=== PATIENT | male | born 1975 | race Caucasian/White ===

== ENCOUNTER 2016-08-11 11:37 | Emergency (ER) | payer SELFPAY ==
[~2016-08-11] VITALS: Ht 167.6 cm; Wt 58.0 kg
[2016-08-11 11:39] VITALS: BP 128/82; PULSE 73; RESP 15; TEMP 98.3; O2SAT 98
[2016-08-11] MEDS ORDERED: SODIUM CHLOR 0.9% 1000 ML INJ 1,000 ML IV ONE (11:58)
[2016-08-11] MEDS ORDERED: ONDANSETRON HCL 4 MG/2 ML VIAL IVP ONE (12:00)
[2016-08-11] MEDS ORDERED: SODIUM CHLORIDE 0.9% FLUSH 10 ML FLUSH IVF PRN (12:00)
--- NOTE | 2016-08-11 12:04 | PD ---
HPI Chief Complaint: Dizziness Time Seen by Provider: 12:00 Travel History International Travel<30 days: No Contact w/Intl Traveler<30days: No Traveled to known affect area: No History of Present Illness HPI 41 year old male presents to the emergency department for evaluation of vomiting and dizziness that started last night around 9pm. Patient reports continuous vomiting with associated nausea. He reports associated fatigue. He denies any fevers, headache, chest pain, SOB, abdominal pain, diarrhea, constipation. He reports PMH of HIV. He states his infectious disease MD is Dr. Reid. He states he has had to change his antiviral medications often due to stomach problems and vomiting. He states last time he had a medication change was 2 weeks ago. He believes current symptoms are due to antivirals. He is unsure of his CD4 count or viral load, but states he is compliant with his antivirals. Patient is tunisian speaking and he requests translation be done through his sister at bedside. Official business architect was offered, but declined. [facility] Social History Alcohol Use: No Tobacco Use: Yes Substance Use: No Allergies-Medications (Allergen,Severity, Reaction): Coded Allergies: No Known Allergies (Unverified , 08/11/16) Reported Meds & Prescriptions Reported Meds & Active Scripts Active Reported Descovy (Emtricitabine-Tenofovir Alafenamide) 200-25 mg Tab 1 Tab PO DAILY Prezcobix (Darunavir-Cobicistat) 800-150 Mg Tab 1 Tab PO DAILY Review of Systems Except as stated in HPI: all other systems reviewed are Neg Physical Exam Narrative GENERAL: Well-nourished, well-developed male patient, ambulatory and in no acute distress. Afebrile. SKIN: Focused skin assessment warm/dry. HEAD: Normocephalic. Atraumatic. EYES: No scleral icterus. No injection or drainage. NECK: Supple, trachea midline. No JVD or lymphadenopathy. CARDIOVASCULAR: Regular rate and rhythm without murmurs, gallops, or rubs. RESPIRATORY: Breath sounds equal bilaterally. No accessory muscle use. Lung sounds are clear to auscultation throughout. GASTROINTESTINAL: Abdomen soft, non-tender, nondistended. MUSCULOSKELETAL: No cyanosis, or edema. BACK: Nontender without obvious deformity. No CVA tenderness. NEUROLOGICAL: Awake and alert. Cranial nerves II through XII intact. Motor and sensory grossly within normal limits. Five out of 5 muscle strength in all muscle groups. Normal speech. Data Data Last Documented VS Vital Signs Date Time Temp Pulse Resp B/P Pulse Ox O2 Delivery O2 Flow Rate FiO2 08/11/16 13:27 56 129/85 60 133/91 60 127/87 08/11/16 11:39 98.3 15 98 Orders Electrocardiogram (08/11/16 11:58) Complete Blood Count With Diff (08/11/16 11:58) Comprehensive Metabolic Panel (08/11/16 11:58) Magnesium (Mg) (08/11/16 11:58) Ckmb (Isoenzyme) Profile (08/11/16 11:58) Troponin I (08/11/16 11:58) Ecg Monitoring (08/11/16 11:58) Iv Access Insert/Monitor (08/11/16 11:58) Oximetry (08/11/16 11:58) Ondansetron Inj (Zofran Inj) (08/11/16 12:00) Sodium Chloride 0.9% Flush (Ns Flush) (08/11/16 12:00) Sodium Chlor 0.9% 1000 Ml Inj (Ns 1000 M (08/11/16 11:58) Orthostatic Vital Signs (08/11/16 12:04) CKMB (08/11/16 12:08) CKMB% (08/11/16 12:08) Labs Laboratory Tests Test 08/11/16 12:08 White Blood Count 6.0 TH/MM3 Red Blood Count 5.52 MIL/MM3 Hemoglobin 16.4 GM/DL Hematocrit 47.9 % Mean Corpuscular Volume 86.7 FL Mean Corpuscular Hemoglobin 29.8 PG Mean Corpuscular Hemoglobin 34.3 % Concent Red Cell Distribution Width 13.6 % Platelet Count 218 TH/MM3 Mean Platelet Volume 7.5 FL Neutrophils (%) (Auto) 66.5 % Lymphocytes (%) (Auto) 23.5 % Monocytes (%) (Auto) 7.9 % Eosinophils (%) (Auto) 1.5 % Basophils (%) (Auto) 0.6 % Neutrophils # (Auto) 4.0 TH/MM3 Lymphocytes # (Auto) 1.4 TH/MM3 Monocytes # (Auto) 0.5 TH/MM3 Eosinophils # (Auto) 0.1 TH/MM3 Basophils # (Auto) 0.0 TH/MM3 CBC Comment DIFF FINAL Differential Comment Sodium Level 138 MEQ/L Potassium Level 4.1 MEQ/L Chloride Level 105 MEQ/L Carbon Dioxide Level 27.1 MEQ/L Anion Gap 6 MEQ/L Blood Urea Nitrogen 13 MG/DL Creatinine 1.04 MG/DL Estimat Glomerular Filtration 79 ML/MIN Rate Random Glucose 90 MG/DL Calcium Level 8.7 MG/DL Magnesium Level 2.2 MG/DL Total Bilirubin 0.5 MG/DL Aspartate Amino Transf 27 U/L (AST/SGOT) Alanine Aminotransferase 34 U/L (ALT/SGPT) Alkaline Phosphatase 95 U/L Total Creatine Kinase 311 U/L Creatine Kinase MB 0.8 NG/ML Creatine Kinase MB % 0.3 % Troponin I LESS THAN 0.02 NG/ML Total Protein 7.7 GM/DL Albumin 3.8 GM/DL [facility] Medical Decision Making Medical Screen Exam Complete: Yes Emergency Medical Condition: Yes Medical Record Reviewed: Yes Differential Diagnosis medication reaction vs. gastroenteritis vs. electrolyte abnormality vs. ACS Narrative Course 41 year old male presents to the emergency department for evaluation of dizziness and vomiting that started last night around 9pm. EKG, CBC, CMP, magnesium, CK, Troponin are ordered and pending. Patient is given 1 L NS IV bolus and Zofran 4 mg IV. EKG shows sinus bradycardia, HR 58, no acute ST changes. CBC is unremarkable. CMP shows no acute abnormality. Magnesium is 2.2. CK is 311. Troponin is less than 0.02. Orthostatic VS are negative for orthostatic hypotension. Upon re-examination, patient states he is feeling much better. I discussed the physical exam findings, laboratory findings with my attending physician, Dr. Shiplye, who agrees on plan and disposition. Patient will be discharged with a prescription for Zofran. He is instructed to follow up with his ID MD. He is to return to the ED for any worsening symptoms. He verbalizes agreement and understanding. The patient was discharged in stable condition with instructions, including return instructions and follow up instructions. Diagnosis Primary Impression: Vomiting Qualified Code: R11.2 - Non-intractable vomiting with nausea, unspecified vomiting type Referrals: Infectious Disease Specialist Patient Instructions: Acute Nausea and Vomiting (ED), General Instructions Additional Instructions: Take Zofran as directed as needed for nausea. Follow up with your infectious disease MD. Return to the emergency department for any acute, worsening of symptoms. Med/Other Pt SpecificInfo: Prescription(s) given Scripts Ondansetron Odt 4 Mg Tab4 Mg SL Q6HR PRN (Nausea/Vomiting) #16 TAB Ref 0 Prov:Maricarmen Bender 08/11/16 Disposition: 01 DISCHARGE HOME Condition: Stable Maricarmen Bender Aug 11, 2016 12:04
[2016-08-11] MEDS ORDERED: EMTR1TAB4 PO (12:06)
[2016-08-11] MEDS ORDERED: DARU1TAB2 PO (12:06)
[2016-08-11 12:16] LABS: BASOPHIL % 0.6 % (0.0-2.0); EOSINOPHIL # 0.1 TH/MM3 (0-0.4); EOSINOPHIL % 1.5 % (0.0-4.0); HEMATOCRIT 47.9 % (39.0-51.0); HEMO FLAGS DIFF FINAL; LYMPH % 23.5 % (9.0-44.0); LYMPHOCYTE # 1.4 TH/MM3 (1.0-4.8); MEAN CELL VOLUME 86.7 FL (80.0-100.0); MEAN CORPUSCULAR HEMOGLOBIN 29.8 PG (27.0-34.0); MEAN CORPUSCULAR HGB CONC 34.3 % (32.0-36.0); MONO % 7.9 % (0.0-8.0); NEUT % 66.5 % (16.0-70.0); PLATELET COUNT 218 TH/MM3 (150-450); RED BLOOD COUNT 5.52 MIL/MM3 (4.50-5.90); RED CELL DISTRIBUTION WIDTH 13.6 % (11.6-17.2)
[2016-08-11 12:34] LABS: ANION GAP 6 MEQ/L (5-15); AST (GOT) 27 U/L (15-37); BICARBONATE 27.1 MEQ/L (21.0-32.0); BLOOD UREA NITROGEN 13 MG/DL (7-18); CHLORIDE 105 MEQ/L (98-107); GLOMERULAR FILTRATION RATE 79 ML/MIN (>89); MAGNESIUM 2.2 MG/DL (1.5-2.5); POTASSIUM 4.1 MEQ/L (3.5-5.1); SODIUM (NA) 138 MEQ/L (136-145)
[2016-08-11 12:39] LABS: ALKALINE PHOSPHATASE 95 U/L (45-117); ALT (GPT) 34 U/L (12-78); CREATINE KINASE 311 U/L (39-308); TOTAL BILIRUBIN ADULT 0.5 MG/DL (0.2-1.0)
[2016-08-11 12:51] LABS: CKMB 0.8 NG/ML (0.5-3.6)
[2016-08-11 13:27] VITALS: BP_SYST 127; BP_SYST 129; BP_SYST 133; BP_DIAS 85; BP_DIAS 87; BP_DIAS 91
[2016-08-11] MEDS ORDERED: ONDA4TAB7 SL (13:33)
--- NOTE | 2016-08-12 11:50 | EKG ---
Date Performed: 08/11/2016 Time Performed: 12:26:40 PTAGE: 41 years EKG: SINUS BRADYCARDIA VOLTAGE CRITERIA FOR LVH ABNORMAL ECG NO PREVIOUS TRACING DOCTOR: Ashvin Lim Interpretating Date/Time 08/12/2016 11:49:34
== END 2016-08-11 13:43 | disposition home or self-care (01) ==
LOC: NEPC 11:37
DX: R11.2 Nausea with vomiting, unspecified (principal); Z72.0 Tobacco use; R94.31 Abnormal electrocardiogram [ECG] [EKG]
CPT/HCPCS: 80053; 82550; 82552; 83735; 84484; 85025; 93005; 96361; 96374; 99284; J2405; J7030